=== PATIENT | female | born 1995 | race Caucasian/White ===

== ENCOUNTER → 2018-08-18 10:56 | Outpatient (CLI) | payer BC, SELFPAY ==
[2018-08-19 15:35] LABS: HPV Reflexed? NOT INDICATED
== END ==
PROVIDERS: Family Provider Pediatrics; PCP Pediatrics; Visit Provider Obstetrics & Gynecology
DX: Z12.4 Encounter for screening for malignant neoplasm of cervix (principal)
CPT/HCPCS: 88175; G0145

== ENCOUNTER → 2018-12-20 | Outpatient (CLI) | payer BC, SELFPAY ==
--- NOTE | 2018-12-20 11:20 | TONS_PTH ---
PATIENT: DENNIS PALMA LOC: [facility] U#:[id number] AGE/SX: 23/F ROOM: RE12/20/[address]: Dr. Neftaly Allen MD : 1995 BED: DIS: 12/20/2018 SPEC #: [id number] RECD: 12/20/18 14:32 STATUS: JUSTIN DAVE #: [id number] MEIR: 12/20/18 11:[address]: Neftaly Allen DEPT: SURGICAL PATHOLOGY RECD BY: Janette Mathur ENTERED: 12/20/18 15:32 SP TYPE: TONSILS OTHR DR: Dr. Carlos Silva MD [facility] Tissues: Tonsil, NOS Procedures: Surgery Specimen Level III HEADER OPERATION: Tonsillectomy PRE-OP DIAGNOSIS: Chronic tonsillitis TISSUE SUBMITTED: Tonsils (right tagged with pin) MICROSCOPIC DIAGNOSIS Bilateral tonsils: Reactive lymphoid hyperplasia, consistent with chronic tonsillitis. SJ:lacie 12/21/18 MICROSCOPIC DESCRIPTION Slides are reviewed. GROSS DESCRIPTION Received is one container labeled with the patient's name and designated tonsils - pin on right are two tonsils that in aggregate weigh 7.3 gm. The right tonsil has a pin on it and measures 3.5 x 1.5 x 1 cm. The left tonsil measures 2.5 x 2 x 1 cm. Both tonsils are similar in appearance. The external surfaces are pink-perez, smooth, glistening and somewhat lobulated. Focally they are hemorrhagic, granular and bear cautery artifact. Serial cross sections through the tonsils reveal normal tonsillar architecture. Sections are submitted in two cassettes as follows: 1 - right tonsil, 2 - left tonsil. / TRESSA:lacie 12/20/18 TC:3 [facility]: [id number] x2
== END | disposition home or self-care (01) ==
LOC: LABSPEC 15:20
PROVIDERS: Family Provider Pediatrics; PCP Pediatrics; Referring Provider Otolaryngology; Visit Provider Otolaryngology
DX: J35.01 Chronic tonsillitis (principal)
CPT/HCPCS: 88304

== ENCOUNTER 2020-06-13 07:01 | Emergency (ER) | payer OTHER, SELFPAY ==
[2020-06-13 07:03] VITALS: BP 128/88; PULSE 98; RESP 15; TEMP 36.6; O2SAT 97; BMI 34.4
--- NOTE | 2020-06-13 07:09 | RAD_ITS ---
STUDY: X-RAY - RIGHT HAND, ATTENTION INDEX FINGER REASON FOR EXAM: Injury of the right index finger with metallic foreign body. TECHNIQUE: 3 view(s) of the finger were obtained. COMPARISON: None. FINDINGS: Normal metacarpal head. Normal metacarpophalangeal joint. Normal proximal phalanx. Normal middle phalanx. Normal distal phalanx. Normal proximal interphalangeal joint. Normal distal interphalangeal joint. There is a metallic foreign body in the index finger distal to the ungual tuft. RAD/Finger(s) Min 2 Views IMPRESSION: Metallic foreign body in the distal aspect of the index finger. No demonstrated fracture. Electronically Signed: Michael Licea MD at 8:01 EDT Tel , Service support ,
[2020-06-13] MEDS: Diphth,Pertuss(Acell),Tet Vac 0.5 ML Vial IM (07:16)
--- NOTE | 2020-06-13 07:18 | ED.VIS.GEN ---
History of Present Illness Chief Complaint: Foreign Body Informant: Patient Onset: Today Current Severity: Moderate Maximum Severity: Moderate Narrative: Patient presents from work with foreign body in the right index finger. She was working on some machinery when a long metal splinter went through the distal aspect of her right index finger. She is unsure of her last tetanus update. She is right-hand dominant. - Past Medical History (1) Depression Status: Chronic Past Medical History - Allergies and Home Meds Allergies/Adverse Reactions: Allergies acetaminophen [From Vicodin] Allergy (Verified 06/13/20 07:02) Vomiting hydrocodone [From Vicodin] Allergy (Verified 06/13/20 07:02) Vomiting Primary Care Physician: Carlos Silva MD [STAFF PHYSICIAN] - Prior records reviewed: Yes Lives: Spouse/ Significant Other Smoking Status: Never smoker Review of Systems General: Denies: Chills, Fever Eyes: Denies: Visual changes - bilaterally ENT: Denies: Bilateral ear pain Cardiovascular: Denies: Chest pain Respiratory: Denies: Dyspnea, Cough Gastrointestinal: Denies: Abdominal pain Musculoskeletal: Reports: Extremity Pain Skin: Reports: Wounds Hematologic: Denies: Easy bruising, Easy bleeding Allergy: Denies: Uticaria Physical Exam Vital Signs/Narrative: Vital Signs Temp Pulse Resp BP Pulse Ox 06/13/20 07:03 97.8 F 98 15 128/88 H 97 Inital Vital Signs reviewed: Yes General: Well nourished, Well developed Head: Normocephalic ENT: Moist mucous membranes Neck: Supple Cardiovascular: Regular rate, Regular rhythm Respiratory: No distress, CTA bilaterally Abdomen: Soft, Nontender Extremities: - - Linear metallic foreign body to the distal aspect of the soft tissue right index finger. Full range of motion noted. Neurological: Alert, Oriented x3 Psychological: Normal affect Diagnostic/Tx/Re-eval Right index finger x-ray per my review reveals linear foreign body through the distal aspect of the soft tissue. No bony involvement. - Medical Decision Making Tetanus update is provided. Digital block was performed with 3 cc 1% lidocaine. Glove is removed from the distal aspect of her finger. Foreign body is grasped with hemostats and easily removed. Wound is cleansed. She will be covered with antibiotics to help prevent infection. She will follow-up with [facility]. ED Disposition - Plan for ED Patient: Disposition: Home or Assisted Living Diagnosis: Foreign body in soft tissue Instructions: ED Foreign Body Soft Tissue Removed Prescriptions: Cephalexin [Keflex] 500 mg PO Q12 #14 cap Transmission Status: Pending to [id number] Referrals: [facility] [GROUP OF PHYSICIANS] - 3-5 Days
--- NOTE | 2020-06-13 07:20 | ED.RN ---
left message for [facility] staff to complete drug testing
[2020-06-13 07:51] VITALS: BP 112/74; PULSE 62; RESP 15; O2SAT 99
--- NOTE | 2020-06-13 07:54 | ED.RN ---
[facility] staff called to see the pt. pt already discharged. pt informed to go to [facility]
== END 2020-06-13 07:53 | disposition home or self-care (01) ==
PROVIDERS: Emergency Provider Emergency Medicine; PCP Family Medicine
DX: S61.240A Puncture wound with foreign body of right index finger without damage to nail, initial encounter (principal); Z23 Encounter for immunization; X58.XXXA Exposure to other specified factors, initial encounter; Y93.9 Activity, unspecified; Y92.89 Other specified places as the place of occurrence of the external cause; Y99.0 Civilian activity done for income or pay
CPT/HCPCS: 73140; 90715; 99282

== ENCOUNTER → 2024-07-10 | Outpatient (CLI) | payer BC, SELFPAY ==
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
== END | disposition home or self-care (01) ==
PROVIDERS: PCP Family Medicine; Referring Provider Nurse Practitioner Family; Visit Provider Nurse Practitioner Family
DX: N63.14 Unspecified lump in the right breast, lower inner quadrant (principal)
CPT/HCPCS: 77062; 77066; G0279